=== PATIENT | female | born 1945 | race Caucasian/White ===

== ENCOUNTER 2017-01-20 03:14 | Emergency (ER) | payer MEDICARE ==
[~2017-01-20] VITALS: Ht 157.5 cm; Wt 104.3 kg
[~2017-01-20 03:14] MED LIST: ACIPHEX 20 MG T20 MG PO; ALDACTONE25 MG PO; ALLOPURINOL300 MG PO; BENZONATATE100 MG PO; CALCIUM 500 W/V1 TAB PO; CALTRATE 600+D1 TAB PO; CLINORIL GENER200 MG PO; ETODOLAC400 MG PO; FUROSEMIDE80 MG PO; LEVOTHYROXINE0.15 MG PO; LOVASTATIN40 MG PO; MEDROL 4MG. DOSE4 MG PO; PROPRANOLOL HCL40 MG PO; SEROQUEL300 MG PO; XALATAN 0.2.5 ML/BOT OP; XANAX 1MG TABLET1 MG PO; [UNRECOGNIZED DRUG - OTHER]; [UNRECOGNIZED DRUG - OTHER]; [UNRECOGNIZED DRUG - OTHER] PO
--- NOTE | 2017-01-20 03:27 | Emergency Room Report ---
History of Present Illness Time Seen by MD Celaya Presenting Problem in Triage Pt arrived:Walked Presenting Problem:left shoulder pain after "reaching for a sandwich with right arm today." pt states that her left shoulder has been hurting ever since. 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 N Clinical Suspician of Infection? N Mental Status: 1 - Regular (Normal Baseline) Sepsis Risk:Low Sepsis Risk Have you (or family members/close friends) recently traveled outside the [place]? N If Yes, where/when: Have you had exposure to infectious disease within the past month? TB? Other? Specify: Source patient, RN notes reviewed, family, old records Exam Limitations no limitations Comment recent lt rotator cuff surg with pain tonight after reaching this afternoon and now has less rom Cardiac Chest Pain Chest pain indicative of cardiac No Timing/Duration this evening Severity moderate ALLERGIES Coded Allergies: MDX - Celecoxib (From CELEBREX) (Mild, I-HIVES 11/25/11) MDX - Codeine (CODEINE) (Mild, NA-HALLUCINATIONS 11/25/11) MDX - Duloxetine (From CYMBALTA) (Mild, I-ITCHING 11/25/11) MDX - Hydromorphone (From DILAUDID) (Mild, NA-HALLUCINATIONS 11/25/11) MDX - Morphine (MORPHINE) (Mild, NA-HALLUCINATIONS 11/25/11) MDX - PCN (penicillin) (PCN (PENICILLIN)) (Mild, I-RASH 11/25/11) MDX - Tetracycline (TETRACYCLINE) (Mild, I-ITCHING 11/25/11) Sulfa (Sulfonamide Antibiotics) (08/31/16) Uncoded Allergies: VIOX (Mild, I-ITCHING 11/25/11) Home Medications Active Scripts Methylprednisolone (Medrol Dose Adela) 4 MG PO UD #1 ADELA Prov: 06/28/16 Reported Medications Propranolol Hcl 40 MG PO BID Latanoprost (Xalatan 0.005% Opth Soln) 1 DROP OP QHS Alprazolam (Xanax 1MG) 1 MG PO TID Furosemide (Furosemide) 80 MG PO DAILY PSEUDOEPHEDRINE/BROMPHENIRAMIN (Lodrane D Capsule) 1 CAP PO DAILY Rabeprazole Sodium (Aciphex 20Mg) 20 MG PO DAILY Levothyroxine Sodium (Levothyroxine 0.15MG) 0.15 MG PO DAILY Sulindac (Clinoril Generic 200MG Tab) 200 MG PO BID CALCIUM CARBONATE/VITAMIN D3 (Oyster Shell Calcium-Vit D Tab) 1 TAB PO DAILY Calcium Carbonate-Vitamin D (Calcium 500 W/Vitamin D 500 Mg-125 Iu) 1 TAB PO DAILY Spironolactone (Aldactone) 25 MG PO DAILY Lovastatin 40 MG PO DAILY History Medical History General CAD? No Angina: No ME: No Hypertension? Yes Hyperlipidemia? Yes CHF? No DVT? No PE? No COPD? No Asthma? No Anemia? No GERD? No Gastric ulcers? No GI Bleed? No Hernia? No Thyroid Problems? Yes Hypothyroidism? No CVA? No Seizures? No Diabetes? Yes Insulin Dependent: No Insulin Pump: No Home FSBS? Yes Renal Insuffiency? No End Stage Renal Disease? No UTI? No Stones? No BPH? No GB Disease: No Nephritic Syndrome? No Asplenia? No Hepatitis? No Sickle Cell Disease? No Arthritis? No Migraines? No Cataracts? No Glaucoma? Yes MRSA? No HIV? No TB? No Anxiety? No Depression? No Cancer? No Immunization Hx DT/Tetanus 11/25/11 Surgical Hx Previous Surgery?Y Tubal Ligation TONSILLECTOMY EXCISION MASS RT BREAST RT SHOULDER ROTATOR CUFF RT KNEE REPLACEMENT Back Surgery EYE- CATARACTS/IMPLANTS ATOMIC COCKTAIL- THYROID left shoulder Family History Family Hx Diabetes Yes CAD Yes Hypertension No Hyperlipidemia No Cancer No TB No Social History Smoking Hx Smoker: Former Smoker Tobacco: No Alcohol Alcohol: No Drugs none Review of Systems All Other Systems Reviewed and Negative Constitutional denies fever Eyes denies drainage ENT denies: ear pain, epistaxis, throat pain. Respiratory denies cough, denies shortness of breath, denies wheezing Cardiovascular denies chest pain, denies syncope Gastrointestinal denies abdominal pain, denies diarrhea, denies vomiting Genitourinary denies: dysuria, frequency. Musculoskeletal see HPI, denies back pain, joint pain, denies joint swelling, denies neck pain Skin denies rash Psychiatric/Neurological denies headache, denies seizure Physical Exam Vital Signs Vital Signs Date Time Temp Pulse Resp B/P Pulse O2 O2 Flow FiO2 Ox Delivery Rate 01/20 0319 98.7 60 20 157/77 99 - WBC >12,000 or <4,000 or 10% bands? 2 or more SIRS Criteria Met? B/P:157/77 MAP:103 Creatinine >2.0? UA output<0.5ml/kg/hr for 2 hrs? Platelet count >100,000? Lactate >2.0mmol/1? INR >1.2 or PTT > than 60 sec? Evidence of Organ Dysfunction? Provider documented clinical suspician of infection? N Sepsis Criteria Count: 1 Sepsis Risk: Low Sepsis Risk General Appearance no apparent distress Eye Exam - bilateral eye PERRL, bilateral eye EOMI Ear, Nose, Throat normal ENT inspection Neck supple Respiratory Status No: respiratory distress. 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 No Results/Orders Orders Procedure Date/time Status [id number] VIEWS 01/20 0336 Active XRAY/CT/US XRAY/CT/US XRAY shoulder XR interpretation by reviewed by me Xray Results no fracture seen, abnormal Departure Departure Time of Disposition 0359 Disposition DC Home or Self Care(routine) Clinical Impression Primary Impression: Shoulder pain, left Qualifiers: Chronicity: acute Qualified Code: M25.512 - Pain in left shoulder Condition STABLE Referrals [facility] (Family) Patient Instructions DI for Shoulder Pain Additional Instructions call your ortho this am and call office for report Discharge Counseling Counseled pt/family regarding diagnosis, test results, medications/RX, follow up needs ED Critical Care Critical Care No at 0400
[2017-01-20 04:19] VITALS: BP 111/68
--- NOTE | 2017-01-20 07:51 | RADIOLOGY REPORT PS360 ---
[id number] VIEWS HISTORY: Follow-up surgery, follow-up joint replacement recent surg ORDERING PHYSICIAN: Kd Will MD. . IMPRESSION: PATIENT AGE: 71 years COMPARISON: 03/12/2016 FINDINGS: There is been a left shoulder joint replacement. There is anterior dislocation of the humerus. No acute fracture evident. Osteoarthritic changes are present at the acromioclavicular joint IMPRESSION: Status post left shoulder replacement with anterior dislocation of the humerus.
== END 2017-01-20 04:19 | disposition home or self-care (01) ==
LOC: ER 03:14
DX: M25.512 Pain in left shoulder (principal); I10 Essential (primary) hypertension

== ENCOUNTER → 2017-06-14 | Outpatient (CLI) | payer MEDICARE ==
--- NOTE | 2017-06-14 22:03 | RADIOLOGY REPORT PS360 ---
PROCEDURE: 2-D M-mode and color Doppler study INDICATIONS FOR THE TEST: Chest pain X COPD Heart MurmurX Tobacco Smoking Palpitations Fatigue Syncope Edema HypertensionXDiabetes MellitusX Rheumatic Fever SOBXDOE ObesityXHyperlipidemiaX Family History HD Additional History PATIENT INFORMATION HEIGHT: 62 WEIGHT:245 GENDER: Female B/P:120/70 2-D/M-MODE INTERPRETATION: 2-D MEASUREMENTS OBSERVED VALUES IN CMS Right Ventricular Dimension (RVDd) 1.5 Interventricular Septum (Thickness)(IVsd) 1.3 Left Ventricular Internal Dimensions(LVIDd) 5.6 Left Ventricular Posterior Wall (Thickness)(LVPWd) 1.2 Aortic Root 2.7 Aortic Cusp Separation 1.4 Left Atrial Dimensions (LAD) 3.7 2D 1. Left atrium is mildly enlarged, left ventricle is normal size, there is mild concentric left ventricular hypertrophy, visually estimated ejection fraction 55% with no obvious regional wall motion abnormality. 2. The right atrium and right ventricle are normal size and contractility. 3. The aortic valve is thickened and calcified with mild restriction the leaflet mobility. 4. The mitral valve has mitral annular calcification, that extends and both anterior and posterior mitral leaflet. 5. The tricuspid valve leaflets are minimally thickened. 6. The pulmonic valve is poorly visualized. 7. Trivial pericardial effusion noted. DOPPLER INTERROGATION: 1. The aortic outflow velocities mildly increased, resulting in a mean gradient across valve of 11 mmHg represents mild aortic stenosis, there is no aortic insufficiency. 2. The mitral inflow velocity within normal range, there is no mitral stenosis, there is mild mitral regurgitation, grade 1 diastolic dysfunction seen with tissue Doppler evidence of raised left atrial pressure. 3. There is mild tricuspid regurgitation noted, tricuspid and enteric velocity insufficient for calculation of the right ventricular systolic pressure. CONCLUSION: 1. Mildly enlarged left atrium, normal left ventricular size, preserved left ventricular systolic function, visually estimated ejection fraction 55% with no obvious regional wall motion abnormality, grade 1 diastolic dysfunction seen with tissue Doppler evidence of raised left atrial pressure. 2. Thickened and calcified aortic valve with mild aortic stenosis, there is no aortic insufficiency. 3. Mitral annular calcification, there is no mitral stenosis, there is mild mitral regurgitation. 4. Mild tricuspid regurgitation. 5. No significant pericardial effusion noted.
== END ==
LOC: RAD 07:00
DX: R00.1 Bradycardia, unspecified (principal); R07.9 Chest pain, unspecified; I20.8 Other forms of angina pectoris; I10 Essential (primary) hypertension; E11.9 Type 2 diabetes mellitus without complications; E78.5 Hyperlipidemia, unspecified

== ENCOUNTER → 2017-06-15 | Outpatient (CLI) | payer MEDICARE ==
--- NOTE | 2017-06-15 16:45 | RADIOLOGY REPORT PS360 ---
CT CALCIUM SCORING W/3D CLINICAL INDICATION: CHEST PAIN,BRADYCARDIA,DM,HTN, ORDERING PHYSICIAN: Sergio Oliver MD PATIENT AGE: 72 years COMPARISON: None FINDINGS: The coronary artery calcium score is 1363. This indicates extensive plaque burden with very high cardiovascular disease risk. Calcification also involves the mitral valve annulus. IMPRESSION Extensive plaque burden with very high cardiovascular disease risk
--- NOTE | 2017-06-16 15:28 | RADIOLOGY REPORT PS360 ---
History and Indications: Hypertension, diabetes, hyperlipidemia, family history, chest pain and shortness of breath. Procedure: Patient received a 0.4 mg of Lexiscan, resting heart rate was 58 bpm, resting blood pressure 151/49, with Lexiscan maximum heart rate achieved was 87 beats per minute, and the blood pressure was 146/56. With Lexiscan patient complained of shortness of breath and stomach discomfort. Electrocardiogram: Resting electrocardiogram showed sinus bradycardia Lexiscan there is less than 1.[address] segment depression noted from the baseline EKG. The EKG portion of the Lexiscan Myoview is nondiagnostic. Cardiac stress and resting SPECT images: Cardiac rest and stress SPECT images were obtained using technetium 99 Myoview 10.1 mCi at rest and 30.3 mCi at stress, gated SPECT further analysis of segmental wall motion and calculation of the ejection fraction also done. Cardiac rest and stress SPECT images show decreased tracer activity in the anterior anteroseptal wall which improves on the resting images suggestive of reversible ischemia. Computer derived ejection fraction is over 65% with no obvious regional wall motion abnormality, right ventricle is normal size and contractility. Conclusion: 1. The EKG portion of the Lexiscan Myoview is nondiagnostic. 2. Scintigraphic evidence of mild reversible ischemia involving the anterior and anteroseptal wall, computer derived ejection fraction is over 65% with no obvious regional wall motion abnormality, right ventricle is normal size and contractility. 3. Abnormal Lexiscan Myoview study.
== END ==
LOC: RAD 11:57
DX: R07.9 Chest pain, unspecified (principal); R00.1 Bradycardia, unspecified; I20.8 Other forms of angina pectoris; E11.9 Type 2 diabetes mellitus without complications; E78.5 Hyperlipidemia, unspecified; I10 Essential (primary) hypertension
CPT/HCPCS: A9502; J2785

== ENCOUNTER 2017-07-01 07:41 | Day surgery (SDC) | payer MEDICARE ==
[2017-07-01 08:11] LABS: HEMOGLOBIN 11.7 g/dL (12.2-16.2); LYMPH # 1.9 K/mm3 (0.7-4.5); LYMPH % 18.5 % (10-50.0)
[2017-07-01 08:17] LABS: BUN 48 mg/dL (7-18)
[2017-07-01 08:18] LABS: GFR (ESTIMATED) 28 ML/MIN (59-)
--- NOTE | 2017-07-01 13:53 | RADIOLOGY REPORT PS360 ---
CARDIAC CATHETERIZATION DATE OF CATHETERIZATION:07/01/2017 11:35 AM PROCEDURES: 1. Left heart catheterization 2. Left ventriculogram 3. Selective coronary angiogram 4. Drug-eluting stent deployment to the proximal mid LAD INDICATION FOR TEST: 1. High risk abnormal Myoview with anterior wall ischemia 2. Angina pectoris class III 3. Coronary artery disease 4. Calcium scoring of 1363 Informed consent was obtained prior to the procedure. COMPLICATIONS: None ESTIMATED BLOOD LOSS: Less than 10 ml. TECHNIQUE: One percent lidocaine used to anesthetize the right anterior aspect of the wrist. The right radial artery was accessed via the Seldinger technique. A 6 Montserratian sheath was placed in the right radial artery. 2.5 mg of verapamil, 800 mcg of nitroglycerin and 5000 U Heparin were given through the arterial sheath. A Trap catheter was used to perform left heart catheterization left ventriculogram and selective coronary angiogram. At the end of the diagnostic angiogram and additional 6000 units of heparin was administered intravenously giving an ACT out of range. 180 mg of Brilinta was administered orally. An cortical.io left guide catheter was used intubate the left main artery and a BMW wire was placed into the distal LAD. A 3.25 x 28 mm Xience drug-eluting stent was deployed at 15 eliza reducing the stenosis to less than 20%. A 3.5 x 12 mm noncompliant balloon was in placed in the proximal mid segment and deployed at 20 eliza on 2 occasions post dilating the stenosis giving excellent angiographic results. LINDSAY-3 flow was present before and after the procedure. At the end of the procedure the apparatus was removed the sheath was removed good hemostasis was achieved using TR banding patient transferred to the postop holding area in stable condition ANGIOGRAPHIC RESULTS: 1. The left main artery has an ostial 10-20% nonflow limiting stenosis 2. The left anterior descending artery has a very proximal long 50% stenosis followed by a proximal concentric 70% stenosis. The remaining vessel is free of disease 3. The circumflex artery is a nondominant vessel with mild luminal irregularities 4. The right coronary artery is a large dominant vessel with proximal 20% mid vessel 20-30% stenoses. 5. The MELLO ventriculogram reveals normal 65% 6. The left ventricular end-diastolic pressure severely elevated at 30 mmHg IMPRESSION: 1. Moderate to severe proximal LAD disease which correlated perfectly to the abnormal high risk Myoview 2. Successful drug-eluting stenting to the proximal LAD severe disease reduced to 0% with 1 drug-eluting stent postdilated 3. Normal ejection fraction 4. Severely elevated LVEDP consistent with diastolic dysfunction PLAN: 1. Brilinta 90 mg twice a day plus baby aspirin 81 mg a day 2. LDL less than 55 3. Risk factor modification 4. Cardiac rehabilitation 5. Tobacco cessation and avoidance 6. Patient would benefit from diuretics in order to decrease her severely elevated LVEDP. She'll be started on the diuretics combined with spironolactone.
[2017-07-06 13:19] VITALS: BP 108/68
== END 2017-07-01 15:47 | disposition home or self-care (01) ==
LOC: CATHLAB 07:41
PROVIDERS: Internal Medicine
PROC: 4A023N7 Measurement of Cardiac Sampling and Pressure, Left Heart, Percutaneous Approach (ICD-10-PCS; principal; 2017-07-01)
PROC: B2111ZZ Fluoroscopy of Multiple Coronary Arteries using Low Osmolar Contrast (ICD-10-PCS; 2017-07-01)
PROC: B2151ZZ Fluoroscopy of Left Heart using Low Osmolar Contrast (ICD-10-PCS; 2017-07-01)
PROC: 027034Z Dilation of Coronary Artery, One Artery with Drug-eluting Intraluminal Device, Percutaneous Approach (ICD-10-PCS; 2017-07-01)
DX: I25.119 Atherosclerotic heart disease of native coronary artery with unspecified angina pectoris (principal); R94.39 Abnormal result of other cardiovascular function study; Z72.0 Tobacco use; I11.9 Hypertensive heart disease without heart failure

== ENCOUNTER 2017-07-08 22:27 | Emergency (ER) | payer MEDICARE ==
[~2017-07-08] VITALS: Ht 157.5 cm; Wt 113.4 kg
[2017-07-08] MEDS ORDERED: ASPIRIN 81MG TA81 MG PO (22:53)
--- NOTE | 2017-07-09 00:18 | Emergency Room Report ---
History of Present Illness Time Seen by [id number] Presenting Problem in Triage Pt arrived:Walked Presenting Problem:FALL GOING UP STEPS, LANDED ON RIGHT ARMS AND SIDE. PT STATES THAT SHE HIT RIGHT SIDE OF FACE WELL. PT HAD PREVIOUS HEART CATH AND HAS BRUSING FROM IT BUT NOW HAS A KNOT THAT WAS NOT THERE BEFORE. 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 N Clinical Suspician of Infection? N Mental Status: 1 - Regular (Normal Baseline) Sepsis Risk:Low Sepsis Risk Have you (or family members/close friends) recently traveled outside the [place]? N If Yes, where/when: Have you had exposure to infectious disease within the past month? N TB? Other? Specify: Source patient, RN notes reviewed, family, old records Exam Limitations no limitations Comment pt tripped up stair and rt sided head and facial injury and also rt wrist injury - had recent rt heart cath Cardiac Chest Pain Chest pain indicative of cardiac No Timing/Duration this evening Severity moderate ALLERGIES Coded Allergies: Penicillins (01/20/17) Sulfa (Sulfonamide Antibiotics) (08/31/16) celecoxib (01/20/17) codeine (01/20/17) duloxetine (01/20/17) hydromorphone (01/20/17) morphine (01/20/17) tetracycline (01/20/17) Uncoded Allergies: VIOX (Mild, I-ITCHING 11/25/11) Home Medications Reported Medications Propranolol Hcl 40 MG PO BID Latanoprost (Xalatan 0.005% Opth Soln) 1 DROP OP QHS Alprazolam (Xanax 1MG) 1 MG PO TID Furosemide (Furosemide) 80 MG PO DAILY PSEUDOEPHEDRINE/BROMPHENIRAMIN (Lodrane D Capsule) 1 CAP PO DAILY Rabeprazole Sodium (Aciphex 20Mg) 20 MG PO DAILY Levothyroxine Sodium (Levothyroxine 0.15MG) 0.15 MG PO DAILY Sulindac (Clinoril Generic 200MG Tab) 200 MG PO BID CALCIUM CARBONATE/VITAMIN D3 (Oyster Shell Calcium-Vit D Tab) 1 TAB PO DAILY Calcium Carbonate-Vitamin D (Calcium 500 W/Vitamin D 500 Mg-125 Iu) 1 TAB PO DAILY Spironolactone (Aldactone) 25 MG PO DAILY Lovastatin 40 MG PO DAILY ASPIRIN (Aspirin) 81 MG PO DAILY History Medical History General CAD? No Angina: No SD: No Hypertension? Yes Hyperlipidemia? Yes CHF? No DVT? No PE? No COPD? No Asthma? No Anemia? No GERD? No Gastric ulcers? No GI Bleed? No Hernia? No Thyroid Problems? Yes Hypothyroidism? No CVA? No Seizures? No Diabetes? Yes Insulin Dependent: No Insulin Pump: No Home FSBS? Yes Renal Insuffiency? No End Stage Renal Disease? No UTI? No Stones? No BPH? No GB Disease: No Nephritic Syndrome? No Asplenia? No Hepatitis? No Sickle Cell Disease? No Arthritis? No Migraines? No Cataracts? No Glaucoma? Yes MRSA? No HIV? No TB? No Anxiety? No Depression? No Cancer? No More? No Immunization Hx DT/Tetanus 11/25/11 Surgical Hx Previous Surgery?Y Tubal Ligation TONSILLECTOMY EXCISION MASS RT BREAST RT SHOULDER ROTATOR CUFF RT KNEE REPLACEMENT Back Surgery EYE- CATARACTS/IMPLANTS ATOMIC COCKTAIL- THYROID left shoulder LEFT KNEE REPLACEMENT Family History Family Hx Diabetes Yes CAD Yes Hypertension No Hyperlipidemia No Cancer No TB No Social History Smoking Hx Smoker: Former Smoker Tobacco: No Alcohol Alcohol: No Drugs none Review of Systems All Other Systems Reviewed and Negative Constitutional denies fever Eyes denies drainage ENT denies: ear pain, epistaxis, throat pain. Respiratory denies cough, denies shortness of breath, denies wheezing Cardiovascular denies chest pain, denies syncope Gastrointestinal denies abdominal pain, denies diarrhea, denies vomiting Genitourinary denies: dysuria, frequency, hesitancy, hematuria. Musculoskeletal see HPI, denies back pain, joint pain, joint swelling, denies neck pain Skin denies rash Psychiatric/Neurological denies headache, denies seizure Physical Exam Vital Signs Vital Signs Date Time Temp Pulse Resp B/P Pulse O2 O2 Flow FiO2 Ox Delivery Rate 07/09 0004 62 20 144/69 96 07/08 2232 98.0 67 20 143/61 95 - WBC >12,000 or <4,000 or 10% bands? 2 or more SIRS Criteria Met? B/P:144/69 MAP:88 Creatinine >2.0? UA output<0.5ml/kg/hr for 2 hrs? Platelet count >100,000? Lactate >2.0mmol/1? INR >1.2 or PTT > than 60 sec? Evidence of Organ Dysfunction? Provider documented clinical suspician of infection? N Sepsis Criteria Count: 1 Sepsis Risk: Low Sepsis Risk General Appearance no apparent distress Eye Exam - bilateral eye PERRL, bilateral eye EOMI Ear, Nose, Throat normal ENT inspection Neck non-tender Respiratory Status No: respiratory distress. Lung Sounds bilateral: lungs clear. 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 No Results/Orders Current Medication Orders Sig/Kira Start time Last Medication Dose Route Stop Time Status Admin Acetaminophen 650 MG ONCE ONE 07/08 2330 DC 07/08 PO 07/08 Acetaminophen 0 .STK-MED ONE 07/08 2249 DC PO Orders Procedure Date/time Status DIET-NOTHING BY MOUTH 07/[address] SINUS (MAX-FACIAL W/O CONT) 07/[address] HEAD W/O CONTRAST 07/[address] HEAD REQ 07/[address] SCAN REQ 07/08 2244 Active WRIST-3 VIEWS-RT 07/08 2244 Active FOREARM-RT 07/08 2244 Active XRAY/CT/US XRAY/CT/US 1 CT head, sinus CT interpretation by discussed w/radiologist Time results known: 0029 CT Results no fracture seen XRAY/CT/US 2 XRAY forearm, wrist XR interpretation by reviewed by me Xray Results no fracture seen, abnormal Departure Departure Time of Disposition 0028 Disposition DC Home or Self Care(routine) Clinical Impression Primary Impression: Contusion of forearm, right Qualifiers: Encounter type: initial encounter Qualified Code: S50.11XA - Contusion of right forearm, initial encounter Secondary Impressions: Facial contusion Qualifiers: Encounter type: initial encounter Qualified Code: S00.83XA - Contusion of other part of head, initial encounter Sprain of wrist, right Qualifiers: Encounter type: initial encounter Qualified Code: S63.501A - Unspecified sprain of right wrist, initial encounter Condition STABLE Referrals [facility] (Family) Patient Instructions How to Prevent Falls Additional Instructions ice and see pcp for follow up Discharge Counseling Counseled pt/family regarding diagnosis, test results, follow up needs ED Critical Care Critical Care No at 0034
[2017-07-09 00:46] VITALS: BP 144/69
--- NOTE | 2017-07-09 09:11 | RADIOLOGY REPORT PS360 ---
CT HEAD WITHOUT CONTRAST CT BONE WINDOWS included ORDERING PHYSICIAN : Kd Will MD PATIENT AGE: 72 years GENDER: Female PROCEDURE: Routine axial images headwithout contrast. Brain & bone windows HISTORY: FALL headache vertigo facial trauma COMPARISON: Previous CT head November 2014 FINDINGS: The cerebral atrophy. Age-appropriate. This accounts for the slight dilatation the lateral ventricles. The subtle periventricular low density changes most most compatible with chronic small vessel deep white matter ischemic gliotic changes No acute intracranial findings. No hemorrhage. No mass effect or mass lesion. No subdural nor extra-axial collection. .. The posterior fossa appear satisfactory and unremarkable. The skull is intact. Sinuses paranasal are discussed on a separate study to follow.-Only mild mucosal thickening lateral wall left maxillary sinus noted on these images Mastoid air cells, middle ear & IACs are unremarkable. IMPRESSION: No acute intracranial findings.. Cerebral atrophy. No acute findings
--- NOTE | 2017-07-09 10:33 | RADIOLOGY REPORT PS360 ---
WRIST-3 VIEWS-RT, FOREARM-RT HISTORY: FALL pain at radial aspect of wrist and forearm Patient Age: 72 years: Female Ordering Physician: Kd Will MD TECHNIQUE: Right wrist, 3 views. Right forearm 2 views COMPARISON :No prior studies RIGHT WRIST 3 view . Prominent arthritic changes are seen at the first carpal-metacarpal joint. Narrowing sclerosis and prominent hypertrophic changes about this joint space. Hypertrophy and exuberant marginal osteophytes most evident on the oblique view seen extending dorsal and perhaps towards base of second metacarpal. No acute fracture acute findings. There is mild increased density in focal area of sclerosis at the more distal lunate. This Suspect more likely reflects bone island or dense changes at cystic area rather the Kienbock dz disease (avascular necrosis) lunate in this older age female patient... Typically there is more diffuse sclerosis as well as flattening of the lunate. If desire further evaluation of specifically for this feature MRI may be of benefit. Metacarpals intact distal radius intact. There is a subtle line passing through the ulnar styloid on the oblique view the wrist. Difficult to exclude a small hairline fracture here but favor it is more likely artifact. No displaced fracture and ulnar styloid. RIGHT FOREARM. 2 views . The ap and lateral views of forearm show no acute fracture. Bones well mineralized The sclerotic area distal lunate again noted; as is a cystic area at the distal scaphoid;. The prominent hypertrophic degenerative arthritic changes first carpal-metacarpal joint again noted Focal area focal edema which likely reflects contusion or hematoma involving the generous subcutaneous adipose here at the anterior/radial aspect of the forearm, likely from focal trauma injury?. The bone beneath this unremarkable IMPRESSION 1. No discrete acute fracture no dislocation 2. On Oblique view the wrist is a subtle line transversing ulnar styloid but I favor this more likely artifact. Less likely nondisplaced hairline fracture. Certainly No displaced fracture here. The 3. Severe arthritic changes at the first carpal-metacarpal joint with marked joint space narrowing. Sclerosis & exuberant marginal osteophytes 4. Sclerotic area most evident at distal lunate, most likely reflecting bone island or degenerative changes. (Doubt Kienbock dz disease (avascular necrosis) lunate in this older age female patient) 5. Soft tissue contusion is seen at the subcutaneous fat performed most eviden involving t anterior radial aspect forearm
--- NOTE | 2017-07-10 18:00 | RADIOLOGY REPORT PS360 ---
CT SINUS (MAX-FACIAL W/O CONT) HISTORY: FALLfall with right-sided facial pain and injury. Patient Age: 72 years: Female Ordering Physician: Kd Will MD TECHNIQUE: Helical CT scanning performed through the facial bones with sagittal and coronal reconstructions on CT workstation COMPARISON : Previous CT sinuses from November 2014 FINDINGS Facial bones are intact with no fracture.. . The nasal bone is intact. Zygomatic arch is intact. Orbital rims intact. Floor & medial wall of orbit intact. Globes unremarkable. The medial rectus is upper normal and prominence bilaterally. Mild to moderate mucosal thickening at the floor the left maxillary sinus, extending towards lateral wall is similar to previus studies from 2015. The right maxillary sinus is clear and unremarkable. The ostiomeatal complex and pathway is are patent bilaterally. The ethmoid air cells well-developed and clear with borderline mucosal thickening. Sphenoid sinus and frontal sinuses clear-. Unremarkable. Prominent engorgement nasal turbinates bilaterally is seen today and is a change & more pronounced than on 2015 exam.. IMPRESSION: 1. Facial bones intact. No facial bone fracture evident. 2. Mild to moderate chronic mucosal thickening floor left maxillary sinus Engorgement nasal turbinates bilaterally with pronounced today than 2015
== END 2017-07-09 00:47 | disposition home or self-care (01) ==
LOC: ER 22:27
DX: S50.11XA Contusion of right forearm, initial encounter (principal); S00.83XA Contusion of other part of head, initial encounter; S63.501A Unspecified sprain of right wrist, initial encounter; W10.9XXA Fall (on) (from) unspecified stairs and steps, initial encounter; Y92.019 Unspecified place in single-family (private) house as the place of occurrence of the external cause; Z88.0 Allergy status to penicillin; Z88.2 Allergy status to sulfonamides; Z79.82 Long term (current) use of aspirin; Z88.6 Allergy status to analgesic agent; I10 Essential (primary) hypertension; E78.5 Hyperlipidemia, unspecified; E11.9 Type 2 diabetes mellitus without complications; Z87.891 Personal history of nicotine dependence

== ENCOUNTER 2017-07-19 05:26 | Emergency (ER) | payer MEDICARE ==
[~2017-07-19] VITALS: Ht 157.5 cm; Wt 115.7 kg
[~2017-07-19 05:26] MED LIST changes: +ASPIRIN 81MG TA81 MG PO
--- NOTE | 2017-07-19 05:56 | Emergency Room Report ---
History of Present Illness Time Seen by MD Simental Presenting Problem in Triage Pt arrived:Wheelchair Presenting Problem:PAIN IN RIGHT FOOT, STATES SHE HAS BEEN HAVING TROUBLE WITH FOOT ALL NIGHT. 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 N Clinical Suspician of Infection? N Mental Status: 1 - Regular (Normal Baseline) Sepsis Risk:Low Sepsis Risk Have you (or family members/close friends) recently traveled outside the [place]? N If Yes, where/when: Have you had exposure to infectious disease within the past month? N TB? Other? Specify: Source patient, RN notes reviewed, family, old records Exam Limitations no limitations Comment pt with rt foot and ankle pain sec to prev fall- trip injury -pt with no new injury and has had progressive pain to rt foot since her prev injury Cardiac Chest Pain Chest pain indicative of cardiac No Timing/Duration this morning Severity moderate ALLERGIES Coded Allergies: Penicillins (01/20/17) Sulfa (Sulfonamide Antibiotics) (08/31/16) celecoxib (01/20/17) codeine (01/20/17) duloxetine (01/20/17) hydromorphone (01/20/17) morphine (01/20/17) tetracycline (01/20/17) Uncoded Allergies: VIOX (Mild, I-ITCHING 11/25/11) Home Medications Reported Medications Propranolol Hcl 40 MG PO BID Latanoprost (Xalatan 0.005% Opth Soln) 1 DROP OP QHS Alprazolam (Xanax 1MG) 1 MG PO TID Furosemide (Furosemide) 80 MG PO DAILY PSEUDOEPHEDRINE/BROMPHENIRAMIN (Lodrane D Capsule) 1 CAP PO DAILY Rabeprazole Sodium (Aciphex 20Mg) 20 MG PO DAILY Levothyroxine Sodium (Levothyroxine 0.15MG) 0.15 MG PO DAILY Sulindac ([place] Generic 200MG Tab) 200 MG PO BID CALCIUM CARBONATE/VITAMIN D3 (Oyster Shell Calcium-Vit D Tab) 1 TAB PO DAILY Calcium Carbonate-Vitamin D (Calcium 500 W/Vitamin D 500 Mg-125 Iu) 1 TAB PO DAILY Spironolactone (Aldactone) 25 MG PO DAILY Lovastatin 40 MG PO DAILY ASPIRIN (Aspirin) 81 MG PO DAILY History Medical History General CAD? No Angina: No MT: No Hypertension? Yes Hyperlipidemia? Yes CHF? No DVT? No PE? No COPD? No Asthma? No Anemia? No GERD? No Gastric ulcers? No GI Bleed? No Hernia? No Thyroid Problems? Yes Hypothyroidism? No CVA? No Seizures? No Diabetes? Yes Insulin Dependent: No Insulin Pump: No Home FSBS? Yes Renal Insuffiency? No End Stage Renal Disease? No UTI? No Stones? No BPH? No GB Disease: No Nephritic Syndrome? No Asplenia? No Hepatitis? No Sickle Cell Disease? No Arthritis? No Migraines? No Cataracts? No Glaucoma? Yes MRSA? No HIV? No TB? No Anxiety? No Depression? No Cancer? No More? No Immunization Hx DT/Tetanus 11/25/11 Surgical Hx Previous Surgery?Y Tubal Ligation TONSILLECTOMY EXCISION MASS RT BREAST RT SHOULDER ROTATOR CUFF RT KNEE REPLACEMENT Back Surgery EYE- CATARACTS/IMPLANTS ATOMIC COCKTAIL- THYROID left shoulder LEFT KNEE REPLACEMENT Family History Family Hx Diabetes Yes CAD Yes Hypertension No Hyperlipidemia No Cancer No TB No Social History Smoking Hx Smoker: Never Smoker Tobacco: No Type Cigarettes Alcohol Alcohol: No Drugs none Review of Systems All Other Systems Reviewed and Negative Constitutional denies fever Eyes denies drainage ENT denies: ear discharge, epistaxis, throat pain. Respiratory denies cough, denies shortness of breath, denies wheezing Cardiovascular denies chest pain, denies palpitations, denies syncope Gastrointestinal denies abdominal pain, denies diarrhea, denies vomiting Genitourinary denies: dysuria, frequency, hesitancy, hematuria. Musculoskeletal see HPI, denies back pain, joint pain, joint swelling, denies neck pain Skin denies rash Psychiatric/Neurological denies headache, denies seizure Physical Exam Vital Signs Vital Signs Date Time Temp Pulse Resp B/P Pulse O2 O2 Flow FiO2 Ox Delivery Rate 07/19 0536 98.1 66 20 133/64 93 - WBC >12,000 or <4,000 or 10% bands? 2 or more SIRS Criteria Met? B/P:133/64 MAP:87 Creatinine >2.0? UA output<0.5ml/kg/hr for 2 hrs? Platelet count >100,000? Lactate >2.0mmol/1? INR >1.2 or PTT > than 60 sec? Evidence of Organ Dysfunction? Provider documented clinical suspician of infection? N Sepsis Criteria Count: 1 Sepsis Risk: Low Sepsis Risk General Appearance no apparent distress Eye Exam - bilateral eye PERRL, bilateral eye EOMI Ear, Nose, Throat normal ENT inspection Neck supple Respiratory Status No: respiratory distress. Cardiovascular regular rate/rhythm Peripheral Pulses Pulses normal Yes Extremities swelling, tender rt foot with navicular tenderness / achilles/ calcaneous ok Strength 4 Upper Ext (L), 4 Upper Ext (R), 4 Lower Ext (L), 4 Lower Ext (R) Neurologic alert, digital product specialist II-XII nml as tested, no motor/sensory deficits Reflexes Reflexes normal No Mental status normal mood/affect Skin intact Medical Decision Making LABS/Meds/Orders Pt receiving controlled substance in ED? No Results/Orders Current Medication Orders Sig/Kira Start time Last Medication Dose Route Stop Time Status Admin Hydrocodone Bitart/ 1 TAB ONCE ONE 07/19 715 r Acetaminophen PO 07/19 716 Tramadol HCl 1 ADELA ONCE ONE 07/19 715 r PO 07/19 716 Orders Procedure Date/time Status STABILIZE JOINT 07/19 2306 Active FOOT-RT-3 VIEWS 07/19 553 Active ANKLE-RT-3 VIEWS 07/19 553 Active XRAY/CT/US XRAY/CT/US XRAY ankle, foot XR interpretation by reviewed by me Xray Results no fracture seen, abnormal Departure Departure Time of Disposition 0658 Disposition DC Home or Self Care(routine) Clinical Impression Primary Impression: Sprain of foot, right Qualifiers: Encounter type: initial encounter Qualified Code: S93.601A - Unspecified sprain of right foot, initial encounter Condition STABLE Referrals KATARINA HUNTER DPM Patient Instructions DI for Foot Sprain Additional Instructions see podiatry and wt bearing as nuris and see pcp for follow up Discharge Counseling Counseled pt/family regarding diagnosis, test results, medications/RX, follow up needs ED Critical Care Critical Care No at 0704
[2017-07-19 07:31] VITALS: BP 133/64
--- NOTE | 2017-07-19 09:57 | RADIOLOGY REPORT PS360 ---
ANKLE-RT-3 VIEWS HISTORY: Pain following injury FALL ORDERING PHYSICIAN: Kd Will MD PATIENT AGE: 72 years COMPARISON: 08/31/2016 FINDINGS: No fracture or dislocation. No lytic or blastic change. There is normal mineralization.. The joint spaces are well-preserved. No significant degenerative/arthritic changes. No erosive changes evident. IMPRESSION: Negative, no acute finding
--- NOTE | 2017-07-19 09:57 | RADIOLOGY REPORT PS360 ---
FOOT-RT-3 VIEWS HISTORY: Pain following injury FALL ORDERING PHYSICIAN: Kd Will MD PATIENT AGE: 72 years COMPARISON: None FINDINGS: There is mild hallux valgus with osteoarthritic change of the first metatarsophalangeal joint. Hypertrophic changes are present at the navicular cuneiform joint. No acute fracture or dislocation is evident. There is an old fracture to base of the fifth metatarsal. There are mild osteoarthritic changes at the tarsometatarsal junction. IMPRESSION: 1. No acute fracture. There are chronic changes as described above. If pain persists, CT may be of further value. 2. Osteoarthritis with hallux valgus
--- OUTSIDE RECORDS SUMMARY | 2017-07-23 04:30 | External Medical Summary Rpt ---
Author Author IVANAISAIAH Cortez, [employer] Organization [employer] Address Unknown Phone Unavailable Results Basic metabolic panel in Blood Observa Value Referen Units Interpr Notes Date tion ce etation Range Urea 7 - 18 mg/dL High No Sep 22 nitrogen informati 2017 8:00 [Mass/vol on in AM ume] in source Serum or data Plasma Calcium 8.5 - mg/dL Normal No Sep 22 [Mass/vol 10.1 informati 2017 8:00 ume] in on in AM Serum or source Plasma data Chloride 98 - 107 mmoL/L Normal No Sep 22 [Moles/vo informati 2017 8:00 lume] in on in AM Serum or source Plasma data Carbon 21.0 - mmoL/L Normal No Sep 22 dioxide, 32.0 informati 2017 8:00 total on in AM [Moles/vo source lume] in data Serum or Plasma Creatinin 0.55 - mg/dL High No Sep 22 e 1.02 informati 2017 8:00 [Mass/vol on in AM ume] in source Serum or data Plasma Estimated 59- ML/MIN Low REFERENCE Sep 22 RANGE: 2017 8:00 glomerula >60 AM r ML/MIN/1. filtratio 73 SQUARE n rate METERSIf (GF this patient is -A merican, then multiply theresult by 1.210. Glucose 74 - 106 mg/dL Normal No Sep 22 [Mass/vol informati 2017 8:00 ume] in on in AM Serum or source Plasma data Potassium 3.5 - 5.1 mmoL/L Normal No Sep 22 informati 2017 8:00 [Moles/vo on in AM lume] in source Serum or data Plasma Sodium 136 - 145 mmoL/L Normal No Sep 22 [Moles/vo informati 2017 8:00 lume] in on in AM Serum or source Plasma data CBC W Auto Differential panel in Blood Observa Value Referen Units Interpr Notes Date tion ce etation Range Basophils 0 - 0.2 K/MM3 Normal No Sep 22 informati 2017 8:00 [#/volume on in AM ] in source Blood by data Automated count Basophils 0.1 - 2.0 % Normal No Sep 22 /100 informati 2017 8:00 leukocyte on in AM s in source Blood by data Automated count Eosinophi 0.0 - 0.4 K/mm3 Normal No Sep 22 ls informati 2016 8:00 [#/volume on in AM ] in source Blood by data Automated count Eosinophi 0.1 - % Normal No Sep 22 ls/100 12.0 informati 2016 8:00 leukocyte on in AM s in source Blood by data Automated count Granulocy 1.8 - 7.8 K/mm3 Normal No Sep 22 nakul informati 2016 8:00 [#/volume on in AM ] in source Blood by data Automated count Granulocy 37.0 - % Normal No Sep 22 nakul/100 80.0 informati 2016 8:00 leukocyte on in AM s in source Blood by data Automated count Hematocri 37.0 - % Normal No Sep 22 t [Volume 47.0 informati 2016 8:00 on in AM Fraction] source of Blood data Hemoglobi 12.2 - g/dL Low No Sep 22 n 16.2 informati 2016 8:00 [Mass/vol on in AM ume] in source Blood data Lymphocyt 0.7 - 4.5 K/mm3 Normal No Sep 22 es informati 2017 8:00 [#/volume on in AM ] in source Unspecifi data ed specimen by Automated count Lymphocyt 10 - 50.0 % Normal No Sep 22 es informati 2016 8:00 [#/volume on in AM ] in source Unspecifi data ed specimen by Automated count Erythrocy 27 - 31.2 pg Normal No Sep 22 te mean informati 2017 8:00 corpuscul on in AM ar source hemoglobi data n [Entitic mass] Erythrocy 31.8 - g/dl Low No Sep 22 te mean 35.4 informati 2017 8:00 corpuscul on in AM ar source hemoglobi data n concentra tion [Mass/vol ume] by Automated count Erythrocy 82.2 - fl Normal No Sep 22 te mean 97.8 informati 2016 8:00 corpuscul on in AM ar volume source [Entitic data volume] by Automated count Monocytes 0.1 - 1.0 K/mm3 Normal No Sep 22 informati 2016 8:00 [#/volume on in AM ] in source Blood by data Automated count Monocytes 1.7 - 9.3 % Normal No Jun 22 /100 informati 2016 8:00 leukocyte on in AM s in source Blood by data Automated count Platelet 7.4 - fl Normal No Jun 22 mean 10.4 informati 2016 8:00 volume on in AM [Entitic source volume] data in Blood by Automated count Platelets 142 - 424 K/mm3 Normal No Jun 22 inform2016 8:00 [#/volume on in AM ] in source Blood data Erythrocy 4.2 - 5.4 M/mm3 Low No Jul 01 nakul informati 2016 8:00 [#/volume on in AM ] in source Amniotic data fluid Erythrocy 11.5 - % Normal No Jul 01 te 17.5 informati 2016 8:00 distribut on in AM ion width source [Entitic data volume] by Automated count Leukocyte 4.8 - K/MM3 Normal No Jun 22 s 10.8 informati 2016 8:00 [#/volume on in AM ] in source Blood data
--- OUTSIDE RECORDS SUMMARY | 2017-07-23 04:30 | External Medical Summary Rpt | CCD ---
Author Author , [employer] Address Unknown Phone [email or web address] Immunization Name Date Rout CVX Reac Dose Comm Prov Is Faci e tion ent ider Refu lity Give sed n Td 05-1 9 999 Hist H149 No H149 (michelle 6-20 ori lt), 03 al Info adso rmat rbed ion - Sour ce Unsp ecif ied
--- OUTSIDE RECORDS SUMMARY | 2017-07-23 04:30 | External Medical Summary Rpt | CCD ---
Author Author , KASI VILLASEÑOR Address Unknown Phone [email or web address] Purpose Continuity of Care Document - 11-29-2016 through 2016 Problems Code Diagnosis DOS Provider Status M25.512 PAIN IN LEFT SHOULDER M46.1 SACROILIITI S, NOT ELSEWHERE CLASSIFIED R42 DIZZINESS AND GIDDINESS S00.83XA CONTUSION OF OTHER PART OF HEAD, INITIAL ENCOUNTER S50.11XA CONTUSION OF RIGHT FOREARM, INITIAL ENCOUNTER S63.501A UNSPECIFIED SPRAIN OF RIGHT WRIST, INITIAL ENCOUNTER S93.609A UNSPECIFIED SPRAIN OF UNSPECIFIED FOOT, INITIAL ENCOUNTER Results Labs Lab Lab Date Result Refere Interp Status Commen Order Detail nces retati t Range on Bas Metab 1999 Pnl SerPl (12-15-2016 16:48) Comment: Meter: [id number] [employer]: [id number] Stanton Kang Glucose 86 70-130 complet BldC 017 mg/dL ed Glucomt 16:48 r-mCnc CBC (hemogram) Bld Auto (12-15-2016 16:03) Platele 180 150-450 complet t # Bld 017 10*3/mm ed Auto 16:03 3 PMV Bld 11.7 fL 6.0-12. complet Auto 017 0 ed 16:03 RDW RBC 45.1 fl 37.0-54 complet Auto 017 .0 ed 16:03 RDW RBC 13.4 % 11.3-14 complet 017 .5 ed Auto-Rt 16:03 o MCHC 31.4 32.0-36 complet RBC 017 g/dL .0 ed Auto-mC 16:03 nc MCH RBC 29.0 pg 27.0-31 complet Qn 017 .0 ed Auto 16:03 MCV RBC 92.4 fL 80.0-99 complet Auto 017 .0 ed 16:03 Hct VFr 29.0 % 34.5-44 complet Bld 017 .0 ed Auto 16:03 Hgb 9.1 11.5-15 complet Bld-mCn 017 g/dL .5 ed c 16:03 RBC # 12-15- 3.14 3.89-5. complet Bld 017 10*6/mm 14 ed Auto 16:03 3 WBC 11.75 3.50-10 complet nRBC 017 10*3/mm .80 ed cor # 16:03 3 Bld Bas Metab 2000 Pnl SerPl (12-15-2016 12:02) Comment: Verify with Lab Meter: [id number] [employer]ors: [id number] Stanton Kang Glucose 123 70-130 complet BldC 017 mg/dL ed Glucomt 12:02 r-mCnc Bas Metab 2000 Pnl SerPl (12-15-2016 09:57) Comment: Meter: [id number] [employer]ors: [id number] Estela Peggy Glucose 108 70-130 complet BldC 017 mg/dL ed Glucomt 09:57 r-mCnc Bas Metab 2000 Pnl SerPl (12-15-2016 07:39) Comment: Verify with Lab Meter: [id number] [employer]ors: [id number] Stanton Kang Glucose 91 70-130 complet BldC 017 mg/dL ed Glucomt 07:39 r-mCnc Bas Metab 2000 Pnl SerPl (12-15-2016 05:34) Comment: National [employer] Guidelines Comment: Comment: Stage Description GFR Comment: 1 Normal or High 90+ Comment: 2 Mild decrease 60-89 Comment: 3 Moderate decrease 30-59 Comment: 4 Severe decrease 15-29 Comment: 5 Kidney failure <15 BUN/Cre 23.6 7.0-25. complet at 017 0 ed SerPl 05:34 GFR/BSA 37 >60 complet .pred 017 mL/min/ ed SerPl 05:34 1.73 MDRD-Ar VRat Calcium 9.4 8.7-10. complet 017 mg/dL 4 ed XXX-sCn 05:34 c CO2 30.0 20.0-31 complet SerPl-s 017 mmol/L .0 ed Cnc 05:34 Chlorid 105 99-109 complet e 017 mmol/L ed SerPl-s 05:34 Cnc Potassi 4.3 3.5-5.5 complet um 017 mmol/L ed Bld-sCn 05:34 c Sodium 138 132-146 complet Bld-sCn 017 mmol/L ed c 05:34 Creat 1.40 0.60-1. complet Bld-mCn 017 mg/dL 30 ed c 05:34 BUN 33 9-23 complet Bld-mCn 017 mg/dL ed c 05:34 Glucose 86 70-100 complet 017 mg/dL ed Bld-mCn 05:34 c Anion 3.0 3.0-11. complet Gap3 017 mmol/L 0 ed SerPl-s 05:34 Cnc Bas Metab 2000 Pnl SerPl (12-14-2016 21:38) Comment: Meter: [id number] [employer]: [id number] Aj Tarango Glucose 92 70-130 complet BldC 017 mg/dL ed Glucomt 21:38 r-mCnc Bas Metab 2000 Pnl SerPl (12-14-2016 16:56) Comment: Meter: [id number] [employer]: [id number] Janette Baker Glucose 99 70-130 complet BldC 017 mg/dL ed Glucomt 16:56 r-mCnc UA Dipstick Pnl Ur (12-14-2016 15:33) Clarity [id number] Clear complet Ur 017 5 ed 15:33 Cloudy SCT Urobili 0.2 0.2 - complet nogen 017 E.U./dL 1.0 ed Ur Ql 15:33 E.U./dL Strip Nitrite [id number] Negativ complet Ur Ql 017 09 e ed Strip 15:33 Negativ e SCT Leukocy 7056474 Negativ complet te 017 04 e ed esteras 15:33 Small e Ur Ql SCT Strip.a uto Prot Ur [id number] Negativ complet Ql 017 09 e ed Strip 15:33 Negativ e SCT Hgb Ur [id number] Negativ complet Ql 017 09 e ed Strip.a 15:33 Negativ uto e SCT Bilirub 1027831 Negativ complet Ur Ql 017 09 e ed Strip 15:33 Negativ e SCT Ketones 9943028 Negativ complet Ur Ql 017 09 e ed Strip 15:33 Negativ e SCT Glucose 9891840 Negativ complet Ur 017 09 e ed Strip-m 15:33 Negativ Cnc e SCT Sp Gr 1.014 1.001-1 complet Ur 017 .030 ed Strip 15:33 pH Ur <= 5.0 5.0-8.0 complet Strip.a 017 ed uto 15:33 Color [id number] Yellow, complet Ur 017 09 Straw ed 15:33 Yellow color SCT Bas Metab 2000 Pnl SerPl (12-14-2016 12:04) Comment: Meter: [id number] [employer] [employer]: [id number] Savage Olivia Glucose 125 70-130 complet BldC 017 mg/dL ed Glucomt 12:04 r-mCnc Bas Metab 2000 Pnl SerPl (12-14-2016 07:13) Comment: Meter: [id number] [employer] [employer] Counselors: [id number] Savage Olivia Glucose 125 70-130 complet BldC 017 mg/dL ed Glucomt 07:13 r-mCnc CBC W Diff pnl,unspecified Bld (12-14-2016 05:17) Imm 0.04 0.00-0. complet Granulo 017 10*3/mm 03 ed cytes # 05:17 3 Bld Basophi 12-14-2 0.02 0.00-0. complet ls # 017 10*3/mm 20 ed Bld 05:17 3 Auto Eosinop 12-14-2 0.01 0.10-0. complet hil # 017 10*3/mm 30 ed Bld 05:17 3 Auto Monocyt 12-14-2 0.76 0.00-1. complet es # 017 10*3/mm 00 ed Bld 05:17 3 Auto Lymphoc 2 0.65 0.60-4. complet ytes # 017 10*3/mm 80 ed Bld 05:17 3 Auto Neutrop 07-2 10.96 1.50-8. complet hils # 017 10*3/mm 30 ed Bld 05:17 3 Auto Imm 07-2 0.3 % 0.0-0.6 complet Granulo 017 ed cytes 05:17 NFr Bld Basophi -07-2 0.2 % 0.0-1.0 complet ls NFr 017 ed Bld 05:17 Auto Eosinop -07-2 0.1 % 0.0-3.0 complet hil NFr 017 ed Bld 05:17 Auto Monocyt 07-2 6.1 % 0.0-12. complet es NFr 017 0 ed Bld 05:17 Auto Lymphoc 12-14-2 5.2 % 24.0-44 complet ytes 017 .0 ed NFr Bld 05:17 Auto Neutrop 07-2 88.1 % 41.0-71 complet hils 017 .0 ed NFr Bld 05:17 Auto Platele 12-14-2 176 150-450 complet t # Bld 017 10*3/mm ed Auto 05:17 3 PMV Bld 2 10.8 fL 6.0-12. complet Auto 017 0 ed 05:17 RDW RBC 12-14-2 44.4 fl 37.0-54 complet Auto 017 .0 ed 05:17 RDW RBC 07-2 13.1 % 11.3-14 complet 017 .5 ed Auto-Rt 05:17 o MCHC 07-2 31.8 32.0-36 complet RBC 017 g/dL .0 ed Auto-mC 05:17 nc MCH RBC 07-2 29.5 pg 27.0-31 complet Qn 017 .0 ed Auto 05:17 MCV RBC 07-2 92.7 fL 80.0-99 complet Auto 017 .0 ed 05:17 Hct VFr 07-2 28.0 % 34.5-44 complet Bld 017 .0 ed Auto 05:17 Hgb -07-2 8.9 11.5-15 complet Bld-mCn 017 g/dL .5 ed c 05:17 RBC # -07-2 3.02 3.89-5. complet Bld 017 10*6/mm 14 ed Auto 05:17 3 WBC 12.44 3.50-10 complet nRBC 017 10*3/mm .80 ed cor # 05:17 3 Bld Bas Metab 1999 Pnl SerPl (12-14-2016 05:17) Comment: National Kid[employer] Guidelines Comment: Comment: Stage Description GFR Comment: 1 Normal or High 90+ Comment: 2 Mild decrease 60-89 Comment: 3 Moderate decrease 30-59 Comment: 4 Severe decrease 15-29 Comment: 5 Kidney failure <15 Anion 8.0 3.0-11. complet Gap3 017 mmol/L 0 ed SerPl-s 05:17 Cnc BUN/Cre 21.5 7.0-25. complet at 017 0 ed SerPl 05:17 GFR/BSA 25 >60 complet .pred 017 mL/min/ ed SerPl 05:17 1.73 MDRD-Ar VRat Calcium 8.8 8.7-10. complet 017 mg/dL 4 ed XXX-sCn 05:17 c CO2 26.0 20.0-31 complet SerPl-s 017 mmol/L .0 ed Cnc 05:17 Chlorid 102 99-109 complet e 017 mmol/L ed SerPl-s 05:17 Cnc Potassi 4.5 3.5-5.5 complet um 017 mmol/L ed Bld-sCn 05:17 c Sodium 136 132-146 complet Bld-sCn 017 mmol/L ed c 05:17 Creat 2.00 0.60-1. complet Bld-mCn 017 mg/dL 30 ed c 05:17 BUN 43 9-23 complet Bld-mCn 017 mg/dL ed c 05:17 Glucose 106 70-100 complet 017 mg/dL ed Bld-mCn 05:17 c Bas Metab 1999 Pnl SerPl (12-13-2016 21:18) Comment: Meter: [id number] [facility] [employer]: [id number] Donis Sy Glucose 121 70-130 complet BldC 017 mg/dL ed Glucomt 21:18 r-mCnc Bas Metab 2000 Pnl SerPl (12-13-2016 10:28) Comment: Meter: [id number] [employer] [employer]: [id number] Jasmyne Fu Glucose 101 70-130 complet BldC 017 mg/dL ed Glucomt 10:28 r-mCnc Potassium Bld-sCnc (12-13-2016 06:56) Potassi 4.46 3.5-5.3 complet um 017 mmol/L ed BldA-sC 06:56 nc Bas Metab 1999 Pnl SerPl (12-13-2016 06:53) Comment: Meter: [id number] [employer] [employer]: [id number] Jose Qureshi Glucose 90 70-130 complet BldC 017 mg/dL ed Glucomt 06:53 r-mCnc Hgb A1c Bld (11-29-2016 14:30) Comment: The [place] [employer] recommends maintenance of Hemoglobin A1C at 7.0% or lower. Goals for Hemoglobin A1C reduction may need to be modified if hypoglycemia is a problem. Hgb A1c 5.50 % 4.80-5. complet MFr 017 60 ed Bld 14:30 Bas Metab 1999 Pnl SerPl (11-29-2016 14:30) Comment: National Kid[employer] Guidelines Comment: Comment: Stage Description GFR Comment: 1 Normal or High 90+ Comment: 2 Mild decrease 60-89 Comment: 3 Moderate decrease 30-59 Comment: 4 Severe decrease 15-29 Comment: 5 Kidney failure <15 GFR/BSA 44 >60 complet .pred 017 mL/min/ ed SerPl 14:30 1.73 MDRD-Ar VRat Anion 9.0 3.0-11. complet Gap3 017 mmol/L 0 ed SerPl-s 14:30 Cnc BUN/Cre 29.2 7.0-25. complet at 017 0 ed SerPl 14:30 Calcium 9.7 8.7-10. complet 017 mg/dL 4 ed XXX-sCn 14:30 c CO2 25.0 20.0-31 complet SerPl-s 017 mmol/L .0 ed Cnc 14:30 Chlorid 105 99-109 complet e 017 mmol/L ed SerPl-s 14:30 Cnc Potassi -20-2 4.7 3.5-5.5 complet um 017 mmol/L ed Bld-sCn 14:30 c Sodium 02-20-2 139 132-146 complet Bld-sCn 017 mmol/L ed c 14:30 Creat -20-2 1.20 0.60-1. complet Bld-mCn 017 mg/dL 30 ed c 14:30 BUN -20-2 35 9-23 complet Bld-mCn 017 mg/dL ed c 14:30 Glucose -20-2 87 70-100 complet 017 mg/dL ed Bld-mCn 14:30 c CBC (hemogram) Bld Auto (11-29-2016 14:30) Platele -20-2 207 150-450 complet t # Bld 017 10*3/mm ed Auto 14:30 3 PMV Bld -20-2 10.6 fL 6.0-12. complet Auto 017 0 ed 14:30 RDW RBC 02-20-2 44.3 fl 37.0-54 complet Auto 017 .0 ed 14:30 RDW RBC 02-20-2 12.9 % 11.3-14 complet 017 .5 ed Auto-Rt 14:30 o MCHC -20-2 32.1 32.0-36 complet RBC 017 g/dL .0 ed Auto-mC 14:30 nc MCH RBC -20-2 30.0 pg 27.0-31 complet Qn 017 .0 ed Auto 14:30 MCV RBC 02-20-2 93.5 fL 80.0-99 complet Auto 017 .0 ed 14:30 Hct VFr -20-2 37.1 % 34.5-44 complet Bld 017 .0 ed Auto 14:30 Hgb 02-20-2 11.9 11.5-15 complet Bld-mCn 017 g/dL .5 ed c 14:30 RBC # 02-20-2 3.97 3.89-5. complet Bld 017 10*6/mm 14 ed Auto 14:30 3 WBC 02-20-2 9.35 3.50-10 complet nRBC 017 10*3/mm .80 ed cor # 14:30 3 Bld
--- OUTSIDE RECORDS SUMMARY | 2017-07-23 04:30 | External Medical Summary Rpt | CCD ---
Author Author , KASI Organization KASI Address Unknown Phone [email or web address] Immunization Name Date Rout CVX Reac Dose Comm Prov Is Faci e tion ent ider Refu lity Give sed n Td 05-1 9 999 Hist H149 No H149 (michelle 6-20 ori lt), 03 al Info adso rmat rbed ion - Sour ce Unsp ecif ied
--- OUTSIDE RECORDS SUMMARY | 2017-07-23 04:30 | External Medical Summary Rpt | CCD ---
Author Author , KASI VILLASEÑOR Address Unknown Phone [email or web address] Purpose Continuity of Care Document - 11-29-2016 [...] 1999 Pnl SerPl (12-15-2016 16:48) Comment: Meter: [id number] [employer] Stitch: [id number] Stanton Kang Glucose 86 70-130 complet BldC [...] (12-15-2016 12:02) Comment: Verify with Lab Meter: [id number] [employer]: [id number] Stanton Kang Glucose 123 70-130 complet BldC 017 mg/dL ed Glucomt 12:02 r-mCnc Bas Metab 2000 Pnl SerPl (12-15-2016 09:57) Comment: Meter: [id number] [employer]: [id number] Estela Peggy Glucose 108 70-130 complet BldC 017 mg/dL ed Glucomt 09:57 r-mCnc Bas Metab 2000 Pnl SerPl (12-15-2016 07:39) Comment: Verify with Lab Meter: [id number] [employer]: [id number] Stanton Kang Glucose 91 70-130 complet BldC [...] 2000 Pnl SerPl (12-14-2016 21:38) Comment: Meter: [id number] [employer]: [id number] Aj Tarango Glucose 92 70-130 complet BldC 017 mg/dL ed Glucomt 21:38 r-mCnc Bas Metab 2000 Pnl SerPl (12-14-2016 16:56) Comment: Meter: [id number] [employer]: [id number] Janette Baker Glucose 99 70-130 complet BldC 017 mg/dL ed Glucomt 16:56 r-mCnc UA Dipstick Pnl Ur (12-14-2016 15:33) Clarity [id number] Clear complet Ur 017 5 ed 15:33 Cloudy SCT Urobili 0.2 0.2 - complet nogen 017 E.U./dL 1.0 ed Ur Ql 15:33 E.U./dL Strip Nitrite 9098401 Negativ complet Ur Ql 017 09 e ed Strip 15:33 Negativ e SCT Leukocy 0807641 Negativ complet te 017 04 e ed esteras 15:33 Small e Ur Ql SCT Strip.a uto Prot Ur 7297478 Negativ complet Ql 017 09 e ed Strip 15:33 Negativ e SCT Hgb Ur 2372420 Negativ complet Ql 017 09 e ed Strip.a 15:33 Negativ uto e SCT Bilirub 4381998 Negativ complet Ur Ql 017 09 e ed Strip 15:33 Negativ e SCT Ketones 8033601 Negativ complet Ur Ql 017 09 e ed Strip 15:33 Negativ e SCT Glucose 7313382 Negativ complet Ur 017 09 e ed Strip-m 15:33 Negativ Cnc e SCT Sp Gr 1.014 1.001-1 complet Ur 017 .030 ed Strip 15:33 pH Ur <= 5.0 5.0-8.0 complet Strip.a 017 ed uto 15:33 Color 1015822 Yellow, complet Ur 017 09 Straw ed 15:33 Yellow color SCT Bas Metab 2000 Pnl SerPl (12-14-2016 12:04) Comment: Meter: [id number] [employer]: [id number] Savage Olivia Glucose 125 70-130 complet BldC 017 mg/dL ed Glucomt 12:04 r-mCnc Bas Metab 2000 Pnl SerPl (12-14-2016 07:13) Comment: Meter: [id number] [employer]: [id number] Savage Olivia Glucose 125 70-130 complet BldC [...] 1999 Pnl SerPl (12-13-2016 21:18) Comment: Meter: [id number] [employer]: [id number] Donis Sy Glucose 121 70-130 complet BldC 017 mg/dL ed Glucomt 21:18 r-mCnc Bas Metab 2000 Pnl SerPl (12-13-2016 10:28) Comment: Meter: [id number] [employer]itch: [id number] Jasmyne Fu Glucose 101 70-130 complet BldC 017 mg/dL ed Glucomt 10:28 r-mCnc Potassium Bld-sCnc (12-13-2016 06:56) Potassi 4.46 3.5-5.3 complet um 017 mmol/L ed BldA-sC 06:56 nc Bas Metab 1999 Pnl SerPl (12-13-2016 06:53) Comment: Meter: [id number] Slee[employer] Stitch: [id number] Jose Qureshi Glucose 90 70-130 complet BldC 017 mg/dL ed Glucomt 06:53 r-mCnc Hgb A1c Bld (11-29-2016 14:30) Comment: The [place] [employer] recommends maintenance of Hemoglobin A1C [...]
== END 2017-07-19 07:31 | disposition home or self-care (01) ==
LOC: ER 05:26
PROC: 2W3QX1Z Immobilization of Right Lower Leg using Splint (ICD-10-PCS; principal; 2017-07-19)
DX: S93.601A Unspecified sprain of right foot, initial encounter (principal); I10 Essential (primary) hypertension; W01.0XXA Fall on same level from slipping, tripping and stumbling without subsequent striking against object, initial encounter; Y92.9 Unspecified place or not applicable; Z88.0 Allergy status to penicillin; Z88.6 Allergy status to analgesic agent; Z79.82 Long term (current) use of aspirin

== ENCOUNTER → 2017-08-16 | Outpatient (CLI) | payer MEDICARE ==
--- NOTE | 2017-08-16 16:07 | RADIOLOGY REPORT PS360 ---
FOOT-RT-3 VIEWS HISTORY: Right foot pain RT ANKLE PAIN ORDERING PHYSICIAN: PABLO WHITNEY PATIENT AGE: 72 years COMPARISON: 07/19/2017 FINDINGS: Moderate hallux valgus with first metatarsophalangeal angle of 31 degrees with mild osteoarthritic change of the first MTP and hypertrophic change of the distal aspect of the first metatarsal consistent with bunion formation. No fracture or dislocation. There are osteoarthritic changes of the midfoot with subcortical cystic change in the navicular cuneiform joint and bony hypertrophic change of the navicular and medial cuneiform. IMPRESSION: Hallux valgus with bunion formation and osteoarthritis. No significant change
--- NOTE | 2017-08-16 16:08 | RADIOLOGY REPORT PS360 ---
ANKLE-RT-3 VIEWS HISTORY: RT ANKLE PAIN ORDERING PHYSICIAN: PABLO WHITNEY PATIENT AGE: 72 years COMPARISON: None FINDINGS: No fracture or dislocation. No lytic or blastic change. There is normal mineralization.. Minor hypertrophic changes are present involving the anterior distal tibia. The talar dome is unremarkable. Phleboliths are present in the pretibial region anteriorly. IMPRESSION: No acute finding, mild degenerative changes
== END ==
LOC: RAD 15:13
DX: M25.571 Pain in right ankle and joints of right foot (principal)